=== PATIENT | male | born 1950 | race American Indian/Alaskan Native ===

== ENCOUNTER 2021-09-17 09:26 | Outpatient (CLI) | payer MEDICARE ==
--- NOTE | 2021-09-17 15:04 | Vascular Lab Report ---
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 TECHNIQUE: Arterial duplex examination of both lower extremities performed using B-mode, color flow and spectral Doppler assessment. FINDINGS: RIGHT: - Atherosclerotic Plaque & Vessel: [id number] diffuse atherosclerotic calcification is noted th roughout. - Elevated Velocity (>200 cm/s) & Vessel: There is mild elevation of peak systolic velocity within th e distal external iliac vein (211). - Abnormal Waveform & Vessel: None. LEFT: - Atherosclerotic Plaque & Vessel: No significant atherosclerotic plaque. [id number] diffuse at herosclerotic calcification is noted throughout. - Elevated Velocity (>200 cm/s) & Vessel: There is mild elevation of the peak systolic velocity in th e distal left external iliac vein (206) - Abnormal Waveform & Vessel: There are monophasic waveforms within the interrogated left posterior a nd anterior tibial arteries and within the dorsalis pedis. ADDITIONAL FINDINGS: None. Right SHARRI: Not calculated. Left SHARRI: 0.7 IMPRESSION: 1. Diffuse atherosclerotic plaque/calcification. 2. Monophasic waveforms below the left knee consistent with significant peripheral arterial disease. 3. Mild elevation of the peak systolic velocities within the bilateral external iliac veins consisten t with potentially hemodynamically significant stenosis. Conventional or CT angiography is recommended. Ankle-Brachial Index (SHARRI): - Calcified arteries > 1.4 - Normal = 0.9-1.4 - Mild PAD = 0.7-0.89 - Moderate PAD = 0.51-0.69 - Severe PAD < 0.5 Doppler Waveform: - Triphasic is normal. - Biphasic is abnormal if clear transition from triphasic signal along vascular tree. - Monophasic is abnormal. Signer Name: Aman Diaz MD Signed: 09/17/2021 3:00 PM Workstation Name: [id number]
== END 2021-09-17 09:27 | disposition home or self-care (01) ==
LOC: VAS 09:26
PROVIDERS: ATTEND Radiology Diagnostic Radiology
DX: I70.213 Atherosclerosis of native arteries of extremities with intermittent claudication, bilateral legs (principal)
CPT/HCPCS: 93922; 93925